=== PATIENT | female | born 1970 | race Caucasian/White ===

== ENCOUNTER → 2020-09-26 | Outpatient (CLI) | payer BC ==
[~2020-09-26] MED LIST: AMBIEN10 M1 PO; ANTIVERT/2525 M1 PO; ATIVAN0.5 MG PO; FLEXERIL5 MG PO; NKHM PO; ROXICET ORAL SOL5 ML PO; ZOLOFT50 MG PO
== END | disposition home or self-care (01) ==
LOC: RAD 09:45
PROVIDERS: ATTEND Family Medicine
DX: M47.812 Spondylosis without myelopathy or radiculopathy, cervical region (principal); M48.02 Spinal stenosis, cervical region; M25.78 Osteophyte, vertebrae

== ENCOUNTER 2023-08-21 09:54 | Emergency (ER) | payer OTHER ==
[~2023-08-21] VITALS: Ht 165.1 cm; Wt 68.0 kg
[2023-08-21] MEDS ORDERED: ESTRADIOL1 EAC3 TD (10:41)
[2023-08-21] MEDS ORDERED: LEXAPRO5 M1 PO (10:42)
== END 2023-08-21 11:30 | disposition home or self-care (01) ==
LOC: ED 09:54
DX: J02.0 Streptococcal pharyngitis (principal); Z90.89 Acquired absence of other organs; Z90.49 Acquired absence of other specified parts of digestive tract